=== PATIENT | male | born 1955 | race Caucasian/White ===

== ENCOUNTER 2021-03-07 13:48 | Inpatient (IN) | payer MEDICARE ==
[~2021-03-07 13:48] MED LIST: Iopamidol-370 76% 500 ML 1 ML ONE
[2021-03-07 15:37] VITALS: BMI 25.9
[2021-03-07] MEDS ORDERED: Diltiazem 125 MG in Sodium Chloride 0.9% 100 ML IVPB SCH (17:30)
[2021-03-07] MEDS ORDERED: Acetaminophen 325 MG TAB PO PRN (17:31)
[2021-03-07] MEDS ORDERED: HYDROcodone/Acetaminophen 5/325 mg Tablet PO PRN (17:31)
[2021-03-07] MEDS ORDERED: Calcium Carbonate 500 MG ChewTAB PO PRN (17:31)
[2021-03-07] MEDS ORDERED: Senokot S 8.6-50 MG TAB PO PRN (17:31)
[2021-03-07 18:14] LABS: Phosphorus 4.1 mg/dL (2.3-4.7)
[2021-03-07 18:17] LABS: Magnesium 1.5 mg/dL (1.6-2.6)
[2021-03-07] MEDS ORDERED: Albuterol Sulfate 2.5 mg/3 ml Neb NEB PRN (19:00)
[2021-03-07] MEDS: Diltiazem 125 MG in Sodium Chloride 0.9% 100 ML IVPB SCH (21:27)
[2021-03-07] MEDS: Enoxaparin Sodium 80 MG/0.8 ML SYRINGE SC SCH (21:28)
[2021-03-07] MEDS ORDERED: hydrOXYzine 25 MG TAB PO SCH (21:30)
[2021-03-07] MEDS ORDERED: Furosemide 40 MG/4 ML VIAL SLOW IVP SCH (23:45)
[2021-03-07 23:48] LABS: SARS-CoV-2 PCR by NAA Not Detected (NotDetected)
[2021-03-08 04:26] LABS: #Basophils 0.1 thou/uL (0.0-0.2); #Eosinphils 2.1 thou/uL (0.0-0.7); #Lymphocytes 3.1 thou/uL (1.20-3.40); #Monocytes 1.3 thou/uL (0.11-0.59); #Neutrophils 5.3 thou/uL (1.40-6.50); %Basophils 1.2 % (0.0-1.0); %Eosinophils 17.4 % (0.0-10.0); %Lymphocytes 25.9 % (21.0-51.0); %Monocytes 11.1 % (0.0-10.0); %Neutrophils 44.4 % (42.0-75.0); Hemoglobin 14.9 g/dL (14.0-18.0); Mean Corpuscular HGB CONC 31.9 g/dL (32.0-36.0); Mean Corpuscular Hemoglobin 30.7 pg (27.0-31.0); Mean Platelet Volume 8.4 fL (7.4-10.4); Platelet Count 314 thou/uL (130-400); Red Blood Cell (RBC) Count 4.84 mill/uL (4.70-6.10); White Blood Cell (WBC) Count 11.8 thou/uL (4.8-10.8)
[2021-03-08 04:49] LABS: BUN (Urea Nitrogen) 19 mg/dL (8.4-25.7); Calc. Creatinine Clearance 82 mL/min (70-130); Calcium 9.1 mg/dL (7.8-10.44); Carbon Dioxide 24 mmol/L (23-31); Glucose 85 mg/dL (80-115); Potassium 4.2 mmol/L (3.5-5.1); Sodium 135 mmol/L (136-145)
[2021-03-08 05:30] LABS: Chloride 103 mmol/L (98-107)
[2021-03-08 05:35] LABS: Anion Gap 12 mmol/L (10-20)
[2021-03-08] MEDS: Enoxaparin Sodium 80 MG/0.8 ML SYRINGE SC SCH ×2 (08:34→20:26)
[2021-03-08] MEDS: Furosemide 20 MG/2 ML VIAL SLOW IVP SCH ×2 (08:34→20:25)
[2021-03-08] MEDS: Nicotine 21 MG PATCH TD SCH (08:34)
[2021-03-08] MEDS ORDERED: FLU VACC QS2021-22(6MOS UP)/PF 60 MCG/0.5 ML SYRINGE IM ONE (09:00)
[2021-03-08] MEDS: Digoxin 0.5 MG/2 ML AMP SLOW IVP SCH ×3 (10:05→20:26)
[2021-03-08] MEDS: Diltiazem HCl SR 60 mg Capsule PO SCH ×3 (10:05→21:30)
[2021-03-08] MEDS: Diltiazem 125 MG in Sodium Chloride 0.9% 100 ML IVPB SCH (12:40)
[2021-03-08] MEDS ORDERED: Magnesium 2 GM/50 ML 2 GM in Premix Bag 1 BAG IVPB SCH (14:30)
[2021-03-08] MEDS ORDERED: Diltiazem 125 MG in Sodium Chloride 0.9% 100 ML IVPB SCH (16:30)
[2021-03-09] MEDS: Digoxin 0.5 MG/2 ML AMP SLOW IVP SCH (03:47)
[2021-03-09] MEDS: Diltiazem HCl SR 60 mg Capsule PO SCH (03:57)
[2021-03-09 04:54] LABS: #Basophils 0.2 thou/uL (0.0-0.2); #Lymphocytes 3.8 thou/uL (1.20-3.40); #Monocytes 1.7 thou/uL (0.11-0.59); #Neutrophils 5.1 thou/uL (1.40-6.50); %Basophils 1.6 % (0.0-1.0); %Eosinophils 15.4 % (0.0-10.0); %Lymphocytes 29.8 % (21.0-51.0); %Monocytes 13.4 % (0.0-10.0); %Neutrophils 39.8 % (42.0-75.0); Hemoglobin 16.4 g/dL (14.0-18.0); Mean Corpuscular HGB CONC 32.9 g/dL (32.0-36.0); Mean Corpuscular Hemoglobin 31.1 pg (27.0-31.0); Mean Corpuscular Volume 94.4 fL (78.0-98.0); Mean Platelet Volume 8.3 fL (7.4-10.4); Platelet Count 333 thou/uL (130-400); RBC Distribution Width 12.9 % (11.5-14.5); Red Blood Cell (RBC) Count 5.28 mill/uL (4.70-6.10); White Blood Cell (WBC) Count 12.7 thou/uL (4.8-10.8)
[2021-03-09 05:20] LABS: Anion Gap 13 mmol/L (10-20); BUN (Urea Nitrogen) 17 mg/dL (8.4-25.7); Calc. Creatinine Clearance 82 mL/min (70-130); Calcium 9.2 mg/dL (7.8-10.44); Carbon Dioxide 28 mmol/L (23-31); Chloride 100 mmol/L (98-107); Glucose 82 mg/dL (80-115); Magnesium 1.7 mg/dL (1.6-2.6); Potassium 4.3 mmol/L (3.5-5.1); Sodium 137 mmol/L (136-145)
[2021-03-09] MEDS ORDERED: Apixaban 5 MG TAB PO SCH (09:00)
[2021-03-09] MEDS ORDERED: Digoxin 0.125 MG TAB PO SCH (09:00)
[2021-03-09] MEDS: Nicotine 21 MG PATCH TD SCH (10:08)
[2021-03-09] MEDS: Furosemide 20 MG/2 ML VIAL SLOW IVP SCH (10:08)
[2021-03-09 11:40] VITALS: BP 111/71; TEMP 97.8
== END 2021-03-09 14:50 | disposition home or self-care (01) | DRG 309 ==
LOC: 2NO 13:48
PROVIDERS: ADMIT Internal Medicine; ATTEND Family Medicine
DX: I48.91 Unspecified atrial fibrillation (principal); B76.9 Hookworm disease, unspecified; I10 Essential (primary) hypertension; G89.29 Other chronic pain; M54.9 Dorsalgia, unspecified; J44.9 Chronic obstructive pulmonary disease, unspecified; F17.210 Nicotine dependence, cigarettes, uncomplicated; Z20.822 Contact with and (suspected) exposure to COVID-19; F10.10 Alcohol abuse, uncomplicated; E83.42 Hypomagnesemia; Z88.8 Allergy status to other drugs, medicaments and biological substances; Z79.899 Other long term (current) drug therapy; Z90.81 Acquired absence of spleen; Z98.890 Other specified postprocedural states; Z71.6 Tobacco abuse counseling
CPT/HCPCS: 36415; 71275; 80048; 83735; 84100; 84443; 85025; 85379; 93306; J1160; J1650; J1940; J3475; J3490; Q9967; U0003; U0005

== ENCOUNTER 2021-10-04 10:22 | Outpatient (CLI) | payer MEDICARE ==
[2021-10-04 11:57] LABS: Hemoglobin 14.9 g/dL (13.5-17.5); Mean Corpuscular HGB CONC 32.6 g/dL (32.0-36.0); Mean Corpuscular Hemoglobin 30.6 pg (27.0-33.0); Mean Corpuscular Volume 93.8 fl (81.2-95.1); Mean Platelet Volume 9.9 fl (7.4-10.4); Platelet Count 303 10x3/uL (150-450); RBC Distribution Width 14.5 % (11.5-14.5); Red Blood Cell (RBC) Count 4.87 10x6/uL (4.32-5.72); White Blood Cell (WBC) Count 9.6 10x3/uL (3.5-10.5)
[2021-10-04 12:20] LABS: Anion Gap 14 mmol/L (10-20); BUN (Urea Nitrogen) 27 mg/dL (8.4-25.7); Calc. Creatinine Clearance 0 mL/min (70-130); Calcium 8.8 mg/dL (7.8-10.44); Carbon Dioxide 22 mmol/L (23-31); Chloride 105 mmol/L (98-107); Glucose 64 mg/dL (80-115); Potassium 5.1 mmol/L (3.5-5.1); Sodium 136 mmol/L (136-145)
[2021-10-04 21:11] LABS: SARS-CoV-2 PCR by NAA Not Detected (NotDetected)
== END 2021-10-04 10:23 | disposition home or self-care (01) ==
LOC: LABBT 10:22
PROVIDERS: ATTEND Surgery
DX: Z01.818 Encounter for other preprocedural examination (principal); K40.90 Unilateral inguinal hernia, without obstruction or gangrene, not specified as recurrent; Z20.822 Contact with and (suspected) exposure to COVID-19
CPT/HCPCS: 80048; 85027; 93005; U0003; U0005; 93010

== ENCOUNTER 2021-10-09 08:30 | Day surgery (SDC) | payer MEDICARE ==
[2021-10-06 09:37] VITALS: BMI 25.7
[2021-10-09] MEDS ORDERED: Midazolam HCl 2 mg/2 ml Vial ONE (10:30)
[2021-10-09] MEDS ORDERED: Fentanyl 250 MCG/5 ML VIAL ONE (10:30)
[2021-10-09] MEDS ORDERED: SUGAMMADEX SODIUM 200 MG/2 ML VIAL ONE (10:30)
[2021-10-09] MEDS ORDERED: Bupivacaine 0.25% 10 ML VIAL ONE (10:38)
[2021-10-09] MEDS ORDERED: Lidocaine 1% w/Epinephrine 1:100K 20 ML VIAL ONE (10:38)
[2021-10-09] MEDS ORDERED: ePHEDrine 50 MG/ML VIAL ONE ×2 (11:00)
[2021-10-09] MEDS ORDERED: PROPOFOL 200 MG/20 ML VIAL ONE (11:00)
[2021-10-09] MEDS ORDERED: Rocuronium Bromide 10 MG/ML (10ML VIAL) ONE (11:00)
[2021-10-09] MEDS ORDERED: Lidocaine 1% PF 5 ML VIAL ONE (11:00)
[2021-10-09] MEDS ORDERED: Ondansetron PF 4 MG/2 ML Vial ONE (11:00)
[2021-10-09] MEDS ORDERED: Glycopyrrolate 0.2 MG/ML 5 ML SYRINGE ONE ×2 (11:00)
[2021-10-09] MEDS ORDERED: Fentanyl 100 MCG/2 ML VIAL ONE (12:51)
== END 2021-10-09 14:10 | disposition home or self-care (01) ==
LOC: SDC 08:30
PROVIDERS: ATTEND Surgery
PROC: 0YU54JZ Supplement Right Inguinal Region with Synthetic Substitute, Percutaneous Endoscopic Approach (ICD-10-PCS; principal; 2021-10-09)
PROC: 8E0W4CZ Robotic Assisted Procedure of Trunk Region, Percutaneous Endoscopic Approach (ICD-10-PCS; 2021-10-09)
DX: K40.90 Unilateral inguinal hernia, without obstruction or gangrene, not specified as recurrent (principal); R01.1 Cardiac murmur, unspecified; N40.0 Benign prostatic hyperplasia without lower urinary tract symptoms; M19.90 Unspecified osteoarthritis, unspecified site; F17.210 Nicotine dependence, cigarettes, uncomplicated; I48.91 Unspecified atrial fibrillation; Z79.01 Long term (current) use of anticoagulants; Z79.82 Long term (current) use of aspirin; Z79.899 Other long term (current) drug therapy; Z88.8 Allergy status to other drugs, medicaments and biological substances; Z91.038 Other insect allergy status
CPT/HCPCS: C1713; J2250; J2405; J2704; J3010; J3490; S0020

== ENCOUNTER 2022-06-11 11:03 | Outpatient (CLI) | payer MEDICARE | END 2022-06-11 11:04 | disposition home or self-care (01) | LOC: BICCT 11:03 | PROVIDERS: ATTEND Family Medicine | DX: M79.89 Other specified soft tissue disorders (principal); R59.0 Localized enlarged lymph nodes | CPT/HCPCS: 70492; 82565; Q9967 ==

== ENCOUNTER 2022-07-02 11:51 | Outpatient (CLI) | payer MEDICARE | END 2022-07-02 11:52 | disposition home or self-care (01) | LOC: BICCT 11:51 | PROVIDERS: ATTEND Family Medicine | DX: R59.0 Localized enlarged lymph nodes (principal); J98.4 Other disorders of lung; R91.1 Solitary pulmonary nodule; I51.7 Cardiomegaly; K76.9 Liver disease, unspecified; N20.0 Calculus of kidney | CPT/HCPCS: 71260; 82565 ==

== ENCOUNTER 2022-09-19 05:38 | Inpatient (IN) | payer MEDICARE ==
[2022-09-19 06:21] LABS: #Basophils 0.1 thou/uL (0.0-0.2); #Eosinphils 0.1 thou/uL (0.0-0.7); #Lymphocytes 1.6 thou/uL (1.20-3.40); #Monocytes 1.5 thou/uL (0.11-0.59); %Basophils 0.8 % (0.0-1.0); %Eosinophils 0.8 % (0.0-10.0); %Lymphocytes 12.3 % (21.0-51.0); %Monocytes 11.1 % (0.0-10.0); Hemoglobin 17.5 g/dL (14.0-18.0); Mean Corpuscular HGB CONC 30.9 g/dL (32.0-36.0); Mean Corpuscular Hemoglobin 30.4 pg (27.0-31.0); Mean Corpuscular Volume 98.4 fl (78.0-98.0); Mean Platelet Volume 8.7 fL (7.4-10.4); Platelet Count 224 10x3/uL (130-400); RBC Distribution Width 13.4 % (11.5-14.5); Red Blood Cell (RBC) Count 5.76 mill/uL (4.70-6.10); White Blood Cell (WBC) Count 13.3 10x3/uL (4.8-10.8)
[2022-09-19 06:22] LABS: Actual Bicarbonate (HCO3v) 23 mEq/L (22-28); Analyzer IN Cardio ER; Base Excess -2.9 mEq/L (-2.0 to +3.0); Calcium, Ionized (venous) 1.07 mmol/L (1.16-1.32); Chloride (VBG) 102 mmol/L (98-106); Hemoglobin (Hb) 18.6 g/dL (12.6-17.4); Potassium (VBG) 4.63 mmol/L (3.70-5.30); Sodium 137.2 mmol/L (133-146); pH (venous) 7.34 (7.32-7.43)
[2022-09-19 06:31] LABS: PTT 28.2 sec (22.9-36.1); Prothrombin Time 13.5 sec (12.0-14.7)
[2022-09-19 06:40] LABS: Digoxin 0.24 ng/mL (0.8-2.0)
[2022-09-19 06:41] LABS: ALT (SGPT) 51 U/L (8-55); AST (SGOT) 54 U/L (5-34); Albumin 3.4 g/dL (3.4-4.8); Alkaline Phosphatase 77 U/L (40-110); Anion Gap 13 mmol/L (10-20); BUN (Urea Nitrogen) 29 mg/dL (8.4-25.7); Bilirubin, Total 0.7 mg/dL (0.2-1.2); Calc. Creatinine Clearance 0 mL/min (70-130); Calcium 8.8 mg/dL (7.8-10.44); Carbon Dioxide 24 mmol/L (23-31); Chloride 104 mmol/L (98-107); Estimated GFR 62; Glucose 136 mg/dL (80-115); Lipase 9 U/L (8-78); Magnesium 1.9 mg/dL (1.6-2.6); Potassium 4.9 mmol/L (3.5-5.1); Protein, Total 7.4 g/dL (5.8-8.1); Sodium 136 mmol/L (136-145)
[2022-09-19] MEDS ORDERED: Diltiazem 125 MG/25 ML SDV ONE (06:56)
[2022-09-19 07:02] LABS: CKMB 4.6 ng/mL (0-6.6)
[2022-09-19 09:28] LABS: Acetaminophen Less than 10.0 mcg/mL (10.0-30.0); Alcohol Less than 10 mg/dL (Less than 10); Salicylate Less than 8.0 mg/dL (15.0-30.0)
[2022-09-19] MEDS ORDERED: Ondansetron PF 4 MG/2 ML Vial IVP PRN (09:33)
[2022-09-19] MEDS ORDERED: Acetaminophen 325 MG TAB PO PRN (09:33)
[2022-09-19] MEDS ORDERED: Senokot S 8.6-50 MG TAB PO PRN (09:33)
[2022-09-19] MEDS ORDERED: Bisacodyl 5 MG TAB PO PRN (09:33)
[2022-09-19 09:38] LABS: Troponin I 0.108 ng/mL (< 0.028)
[2022-09-19] MEDS ORDERED: Digoxin 0.5 MG/2 ML AMP SLOW IVP SCH (10:30)
[2022-09-19 10:49] LABS: #Basophils 0.1 thou/uL (0.0-0.2); #Lymphocytes 1.7 thou/uL (1.20-3.40); #Monocytes 1.5 thou/uL (0.11-0.59); %Basophils 0.4 % (0.0-1.0); %Eosinophils 0.3 % (0.0-10.0); %Lymphocytes 9.7 % (21.0-51.0); %Monocytes 8.9 % (0.0-10.0); %Neutrophils 80.8 % (42.0-75.0); Hemoglobin 18.1 g/dL (14.0-18.0); Mean Corpuscular HGB CONC 30.6 g/dL (32.0-36.0); Mean Corpuscular Hemoglobin 29.6 pg (27.0-31.0); Mean Corpuscular Volume 96.9 fl (78.0-98.0); Mean Platelet Volume 8.3 fL (7.4-10.4); Platelet Count 223 10x3/uL (130-400); RBC Distribution Width 13.4 % (11.5-14.5); Red Blood Cell (RBC) Count 6.11 mill/uL (4.70-6.10); White Blood Cell (WBC) Count 17.3 10x3/uL (4.8-10.8)
[2022-09-19 10:59] LABS: Actual Bicarbonate (HCO3v) 25 mEq/L (22-28); Base Excess -0.7 mEq/L (-2.0 to +3.0); Calcium, Ionized (venous) 1.06 mmol/L (1.16-1.32); Chloride (VBG) 101 mmol/L (98-106); Potassium (VBG) 5.37 mmol/L (3.70-5.30); Sodium 137.9 mmol/L (133-146); pH (venous) 7.37 (7.32-7.43)
[2022-09-19 11:11] LABS: ALT (SGPT) 57 U/L (8-55); AST (SGOT) 65 U/L (5-34); Albumin 3.8 g/dL (3.4-4.8); Alkaline Phosphatase 87 U/L (40-110); Anion Gap 15 mmol/L (10-20); BUN (Urea Nitrogen) 26 mg/dL (8.4-25.7); Bilirubin, Total 0.7 mg/dL (0.2-1.2); CK (CPK) 178 U/L (30-200); Calc. Creatinine Clearance 0 mL/min (70-130); Calcium 9.4 mg/dL (7.8-10.44); Carbon Dioxide 23 mmol/L (23-31); Chloride 104 mmol/L (98-107); Estimated GFR 72; Globulin 4.3 g/dL (2.4-3.5); Glucose 129 mg/dL (80-115); Potassium 4.8 mmol/L (3.5-5.1); Protein, Total 8.1 g/dL (5.8-8.1); Sodium 137 mmol/L (136-145)
[2022-09-19] MEDS ORDERED: Digoxin 0.5 MG/2 ML AMP ONE (11:59)
[2022-09-19 13:02] LABS: Bilirubin Negative (Negative); Blood, Urine Negative (Negative); Clarity Clear (Clear); Glucose, Urine (Dipstick) Normal (Negative); Ketone, Urine Negative (Negative); Leukocyte Negative Leu/uL (Negative); Nitrite Negative (Negative); Protein, Urine (Dipstick) 10 mg/dL (Neg-Trace); Specific Gravity, Urine 1.021 (1.002-1.036)
[2022-09-19 13:13] LABS: Amphetamine Detected (NotDetected); Barbiturates Screen Not Detected (NotDetected); Benzodiazepine Screen Not Detected (NotDetected); Cocaine Metabolite Screen Not Detected (NotDetected); Methadone Not Detected (NotDetected); Methamphetamine Detected (NotDetected); Opiate Screen Detected (NotDetected); Oxycodone Screen Not Detected (NotDetected); Phencyclidine (PCP) Not Detected (NotDetected); THC/Cannabinoid Screen Not Detected (NotDetected); Tricyclic Screen Not Detected (NotDetected)
[2022-09-19] MEDS ORDERED: Ondansetron PF 4 MG/2 ML Vial ONE (13:17)
[2022-09-19] MEDS ORDERED: cefTRIAXone (ROCEPHIN) 2 GM VIAL ONE (13:21)
[2022-09-19] MEDS ORDERED: Famotidine/PF 20 mg/2ml Vial ONE (13:21)
[2022-09-19] MEDS: cefTRIAXone\\ROCEPHIN 2 GM in Sodium Chloride 0.9% 100 ML IVPB SCH (13:31)
[2022-09-19 13:35] LABS: Troponin I 0.096 ng/mL (< 0.028)
[2022-09-19] MEDS ORDERED: Sodium Chloride 0.9% 500 ML IV SCH (19:00)
[2022-09-19] MEDS: Atorvastatin Calcium 40 MG TAB PO SCH (21:39)
[2022-09-19] MEDS: Famotidine/PF 20 mg/2ml Vial SLOW IVP SCH (21:40)
[2022-09-19] MEDS: Sodium Chloride 0.9% 1,000 ML IV SCH (21:40)
[2022-09-20] MEDS ORDERED: Benzonatate 100 MG CAP PO PRN (03:14)
[2022-09-20 04:00] LABS: #Eosinphils 0.2 thou/uL (0.0-0.7); #Lymphocytes 2.2 thou/uL (1.20-3.40); #Monocytes 2.7 thou/uL (0.11-0.59); #Neutrophils 13.9 thou/uL (1.40-6.50); %Basophils 0.1 % (0.0-1.0); %Eosinophils 1.1 % (0.0-10.0); %Lymphocytes 11.5 % (21.0-51.0); %Monocytes 14.3 % (0.0-10.0); Hemoglobin 17.8 g/dL (14.0-18.0); Mean Corpuscular HGB CONC 31.9 g/dL (32.0-36.0); Mean Corpuscular Hemoglobin 31.2 pg (27.0-31.0); Mean Corpuscular Volume 97.6 fl (78.0-98.0); Mean Platelet Volume 9.1 fL (7.4-10.4); Platelet Count 173 10x3/uL (130-400); RBC Distribution Width 13.3 % (11.5-14.5)
[2022-09-20 04:05] LABS: Bacteria/HPF None Seen HPF (None Seen); Bilirubin Negative (Negative); Blood, Urine Negative (Negative); CAUTI Indications for Culture Alt mental st,lethar; Clarity Clear (Clear); Glucose, Urine (Dipstick) Normal (Negative); Ketone, Urine Negative (Negative); Leukocyte Negative Leu/uL (Negative); Nitrite Negative (Negative); Protein, Urine (Dipstick) 10 mg/dL (Neg-Trace); RBC/HPF 0-3 HPF (0-3); Specific Gravity, Urine 1.021 (1.002-1.036); Squamous Epithelial 0-3 HPF (0-3); Urobilinogen 3 mg/dL (Less than 2); WBC/HPF 0-3 HPF (0-3)
[2022-09-20 04:08] LABS: Urine Culture Reflex No No
[2022-09-20 04:42] LABS: HBCM Index 0.17 S/CO (0-0.79); HBSAg Index 0.25 S/CO (0-0.99); Hep A IgM AB Non-Reactive (NonReactive); Hep A IgM S/CO 0.38 S/CO (0-0.79); Hep B Surf Ag Non-Reactive S/CO (NonReactive); Hepatitis B Core IgM Abs Non-Reactive (NonReactive)
[2022-09-20 05:09] LABS: Hep C IgG Ab Reflex HepC Qnt (NonReactive); Hep C Index 14.55 S/CO (0-0.79)
[2022-09-20 06:26] LABS: Albumin 2.8 g/dL (3.4-4.8)
[2022-09-20 06:27] LABS: Chloride 106 mmol/L (98-107); Sodium 137 mmol/L (136-145)
[2022-09-20 06:29] LABS: Globulin 3.2 g/dL (2.4-3.5); Glucose 89 mg/dL (80-115); Triglycerides 58 mg/dL (Less than 150)
[2022-09-20 06:30] LABS: Anion Gap 12 mmol/L (10-20); Bilirubin, Total 0.6 mg/dL (0.2-1.2); Carbon Dioxide 23 mmol/L (23-31)
[2022-09-20 06:31] LABS: Alkaline Phosphatase 63 U/L (40-110)
[2022-09-20 06:32] LABS: Calc. Creatinine Clearance 88 mL/min (70-130); Estimated GFR 86
[2022-09-20 06:33] LABS: BUN (Urea Nitrogen) 23 mg/dL (8.4-25.7)
[2022-09-20 06:34] LABS: AST (SGOT) 54 U/L (5-34); Cardiac Risk 3.8 (Less than 4.5); Cholesterol 115 mg/dl (< 200 Desired); HDL Cholesterol 30 mg/dL (>60 Neg Risk); LDL Cholesterol, Calculated 73 mg/dL
[2022-09-20 06:35] LABS: ALT (SGPT) 45 U/L (8-55); Calcium 7.6 mg/dL (7.8-10.44)
[2022-09-20] MEDS: Digoxin 0.125 MG TAB PO SCH (08:51)
[2022-09-20] MEDS: Aspirin 81 mg Enteric Coated Tablet PO SCH (08:51)
[2022-09-20] MEDS: Famotidine/PF 20 mg/2ml Vial SLOW IVP SCH ×2 (08:51→20:42)
[2022-09-20] MEDS: Calcium Carbonate 500 MG ChewTAB PO SCH ×2 (08:51→20:43)
[2022-09-20] MEDS ORDERED: Lorazepam 2 MG/ML VIAL SLOW IVP PRN (12:09)
[2022-09-20] MEDS: Thiamine HCl 200 MG/2 ML VIAL SLOW IVP SCH (13:56)
[2022-09-20] MEDS: cefTRIAXone\\ROCEPHIN 2 GM in Sodium Chloride 0.9% 100 ML IVPB SCH (13:57)
[2022-09-20] MEDS: Sodium Chloride 0.9% 1,000 ML IV SCH (15:45)
[2022-09-20] MEDS: Atorvastatin Calcium 40 MG TAB PO SCH (20:44)
[2022-09-21] MEDS: Digoxin 0.125 MG TAB PO SCH (09:06)
[2022-09-21] MEDS: Famotidine/PF 20 mg/2ml Vial SLOW IVP SCH ×2 (09:06→21:03)
[2022-09-21] MEDS: Folic Acid 1 MG TAB PO SCH (09:07)
[2022-09-21] MEDS: Calcium Carbonate 500 MG ChewTAB PO SCH ×2 (09:07→21:03)
[2022-09-21] MEDS: Aspirin 81 mg Enteric Coated Tablet PO SCH (09:07)
[2022-09-21] MEDS: Sodium Chloride 0.9% 1,000 ML IV SCH (12:20)
[2022-09-21] MEDS: Thiamine HCl 200 MG/2 ML VIAL SLOW IVP SCH (12:21)
[2022-09-21] MEDS: cefTRIAXone\\ROCEPHIN 2 GM in Sodium Chloride 0.9% 100 ML IVPB SCH (12:21)
[2022-09-21] MEDS: Atorvastatin Calcium 40 MG TAB PO SCH (21:03)
[2022-09-22] MEDS: Calcium Carbonate 500 MG ChewTAB PO SCH ×2 (09:18→21:08)
[2022-09-22] MEDS: Aspirin 81 mg Enteric Coated Tablet PO SCH (09:18)
[2022-09-22] MEDS: Digoxin 0.125 MG TAB PO SCH (09:18)
[2022-09-22] MEDS: Folic Acid 1 MG TAB PO SCH (09:19)
[2022-09-22 09:21] LABS: Anion Gap 11 mmol/L (10-20); BUN (Urea Nitrogen) 18 mg/dL (8.4-25.7); Calc. Creatinine Clearance 86 mL/min (70-130); Calcium 8.8 mg/dL (7.8-10.44); Carbon Dioxide 28 mmol/L (23-31); Chloride 98 mmol/L (98-107); Estimated GFR 88; Glucose 83 mg/dL (80-115); Potassium 4.2 mmol/L (3.5-5.1); Sodium 133 mmol/L (136-145)
[2022-09-22 09:38] LABS: Hemoglobin 17.3 g/dL (14.0-18.0); Lymphocytes 16 % (21-51); MDiff Complete? YES; Mean Corpuscular Hemoglobin 31.8 pg (27.0-31.0); Mean Corpuscular Volume 96.4 fl (78.0-98.0); Mean Platelet Volume 8.6 fL (7.4-10.4); Monocytes 12 % (0-10); Neutrophil 72 % (42-75); Platelet Count 242 10x3/uL (130-400); Platelet Morphology Comment Appears Adequate; RBC Distribution Width 12.7 % (11.5-14.5); RBC Morphology Normal; Red Blood Cell (RBC) Count 5.45 mill/uL (4.70-6.10); White Blood Cell (WBC) Count 13.1 10x3/uL (4.8-10.8)
[2022-09-22] MEDS: Famotidine/PF 20 mg/2ml Vial SLOW IVP SCH ×2 (10:52→21:08)
[2022-09-22] MEDS ORDERED: Metoprolol Tartrate 5 MG/5 ML VIAL IVP PRN (11:00)
[2022-09-22] MEDS: Sodium Chloride 0.9% 1,000 ML IV SCH (11:07)
[2022-09-22] MEDS: cefTRIAXone\\ROCEPHIN 2 GM in Sodium Chloride 0.9% 100 ML IVPB SCH (11:07)
[2022-09-22] MEDS: Thiamine HCl 200 MG/2 ML VIAL SLOW IVP SCH (12:33)
[2022-09-22 16:37] LABS: HCV RNA, log10 5.975 (.); Hep C PCR-Quant 943000 IU/mL (.)
[2022-09-22] MEDS: Atorvastatin Calcium 40 MG TAB PO SCH (21:08)
[2022-09-23 03:28] LABS: Anion Gap 13 mmol/L (10-20); BUN (Urea Nitrogen) 18 mg/dL (8.4-25.7); Calc. Creatinine Clearance 82 mL/min (70-130); Calcium 8.8 mg/dL (7.8-10.44); Carbon Dioxide 22 mmol/L (23-31); Chloride 100 mmol/L (98-107); Estimated GFR 83; Glucose 83 mg/dL (80-115); Magnesium 1.8 mg/dL (1.6-2.6); Potassium 4.2 mmol/L (3.5-5.1); Sodium 131 mmol/L (136-145)
[2022-09-23] MEDS: Sodium Chloride 0.9% 1,000 ML IV SCH (06:33)
[2022-09-23] MEDS: Digoxin 0.125 MG TAB PO SCH (08:56)
[2022-09-23] MEDS: Aspirin 81 mg Enteric Coated Tablet PO SCH (08:56)
[2022-09-23] MEDS: Famotidine/PF 20 mg/2ml Vial SLOW IVP SCH ×2 (08:57→20:42)
[2022-09-23] MEDS: Folic Acid 1 MG TAB PO SCH (08:57)
[2022-09-23] MEDS: cefTRIAXone\\ROCEPHIN 2 GM in Sodium Chloride 0.9% 100 ML IVPB SCH (11:43)
[2022-09-23] MEDS ORDERED: Magnesium Sulfate 3 GM in Sodium Chloride 0.9% 100 ML IVPB SCH (12:00)
[2022-09-23] MEDS: Thiamine HCl 200 MG/2 ML VIAL SLOW IVP SCH (12:29)
[2022-09-23] MEDS: Nicotine 21 MG PATCH TD SCH (15:36)
[2022-09-23] MEDS: Atorvastatin Calcium 40 MG TAB PO SCH (20:42)
[2022-09-24 05:47] LABS: Hemoglobin 16.9 g/dL (14.0-18.0); Mean Corpuscular HGB CONC 32.3 g/dL (32.0-36.0); Mean Corpuscular Hemoglobin 30.2 pg (27.0-31.0); Mean Corpuscular Volume 93.6 fl (78.0-98.0); Mean Platelet Volume 8.1 fL (7.4-10.4); Platelet Count 278 10x3/uL (130-400); RBC Distribution Width 12.7 % (11.5-14.5); Red Blood Cell (RBC) Count 5.59 mill/uL (4.70-6.10); White Blood Cell (WBC) Count 13.4 10x3/uL (4.8-10.8)
[2022-09-24 05:55] LABS: Anion Gap 10 mmol/L (10-20); BUN (Urea Nitrogen) 20 mg/dL (8.4-25.7); Calc. Creatinine Clearance 86 mL/min (70-130); Calcium 8.2 mg/dL (7.8-10.44); Carbon Dioxide 22 mmol/L (23-31); Chloride 103 mmol/L (98-107); Estimated GFR 91; Glucose 96 mg/dL (80-115); Potassium 4.2 mmol/L (3.5-5.1); Sodium 131 mmol/L (136-145)
[2022-09-24] MEDS: Sodium Chloride 0.9% 1,000 ML IV SCH ×2 (06:31→21:10)
[2022-09-24 08:01] LABS: Lymphocytes 22 % (21-51); MDiff Complete? YES; Monocytes 9 % (0-10); Neutrophil 67 % (42-75); Platelet Morphology Comment Appears Adequate; RBC Morphology Normal
[2022-09-24] MEDS: Famotidine/PF 20 mg/2ml Vial SLOW IVP SCH ×2 (09:37→20:57)
[2022-09-24] MEDS: Digoxin 0.125 MG TAB PO SCH (09:37)
[2022-09-24] MEDS: Aspirin 81 mg Enteric Coated Tablet PO SCH (09:37)
[2022-09-24] MEDS: Folic Acid 1 MG TAB PO SCH (09:37)
[2022-09-24] MEDS: Thiamine HCl 200 MG/2 ML VIAL SLOW IVP SCH (12:31)
[2022-09-24] MEDS ORDERED: hydrALAZINE 25 MG TAB PO SCH (14:00)
[2022-09-24] MEDS: Benzonatate 100 MG CAP PO SCH ×2 (15:27→20:57)
[2022-09-24] MEDS: Nicotine 21 MG PATCH TD SCH (15:27)
[2022-09-24] MEDS: Atorvastatin Calcium 40 MG TAB PO SCH (20:56)
[2022-09-24] MEDS: hydrALAZINE 25 MG TAB PO SCH (20:57)
[2022-09-25 06:28] LABS: Hemoglobin 17.4 g/dL (14.0-18.0); Mean Corpuscular HGB CONC 32.7 g/dL (32.0-36.0); Mean Corpuscular Hemoglobin 31.3 pg (27.0-31.0); Mean Corpuscular Volume 95.4 fl (78.0-98.0); Mean Platelet Volume 8.1 fL (7.4-10.4); Platelet Count 316 10x3/uL (130-400); RBC Distribution Width 12.9 % (11.5-14.5); Red Blood Cell (RBC) Count 5.58 mill/uL (4.70-6.10); White Blood Cell (WBC) Count 11.9 10x3/uL (4.8-10.8)
[2022-09-25 06:41] LABS: Anion Gap 12 mmol/L (10-20); BUN (Urea Nitrogen) 21 mg/dL (8.4-25.7); Calc. Creatinine Clearance 89 mL/min (70-130); Calcium 8.8 mg/dL (7.8-10.44); Carbon Dioxide 19 mmol/L (23-31); Chloride 106 mmol/L (98-107); Estimated GFR 94; Glucose 90 mg/dL (80-115); Magnesium 1.7 mg/dL (1.6-2.6); Potassium 4.3 mmol/L (3.5-5.1); Sodium 133 mmol/L (136-145)
[2022-09-25 07:01] LABS: Band 1 % (5-11); Eosinophils 5 % (0-10); Lymphocytes 25 % (21-51); MDiff Complete? YES; Monocytes 14 % (0-10); Neutrophil 54 % (42-75)
[2022-09-25 07:37] VITALS: BMI 226535.8
[2022-09-25] MEDS ORDERED: Magnesium 2 GM/50 ML(in water) 2 GM in Premix Bag 1 BAG IVPB SCH (08:15)
[2022-09-25] MEDS: Aspirin 81 mg Enteric Coated Tablet PO SCH (10:00)
[2022-09-25] MEDS: hydrALAZINE 25 MG TAB PO SCH ×2 (10:00→21:33)
[2022-09-25] MEDS: Folic Acid 1 MG TAB PO SCH (10:00)
[2022-09-25] MEDS: Famotidine/PF 20 mg/2ml Vial SLOW IVP SCH ×2 (10:00→21:33)
[2022-09-25] MEDS: Benzonatate 100 MG CAP PO SCH ×3 (10:00→21:33)
[2022-09-25] MEDS: Magnesium Oxide 400 MG TAB PO SCH (10:00)
[2022-09-25] MEDS: Digoxin 0.125 MG TAB PO SCH (10:00)
[2022-09-25] MEDS: Thiamine HCl 200 MG/2 ML VIAL SLOW IVP SCH (12:36)
[2022-09-25] MEDS: Sodium Chloride 0.9% 1,000 ML IV SCH (15:50)
[2022-09-25] MEDS: Nicotine 21 MG PATCH TD SCH (15:50)
[2022-09-25] MEDS ORDERED: HYDROcodone/Acetaminophen 5/325 mg Tablet PO SCH (16:45)
[2022-09-25] MEDS ORDERED: Morphine 2 MG/ML VIAL SLOW IVP PRN (18:00)
[2022-09-25] MEDS: Atorvastatin Calcium 40 MG TAB PO SCH (21:32)
[2022-09-26 05:28] LABS: Anion Gap 12 mmol/L (10-20); BUN (Urea Nitrogen) 19 mg/dL (8.4-25.7); Calc. Creatinine Clearance 70 mL/min (70-130); Calcium 8.8 mg/dL (7.8-10.44); Carbon Dioxide 22 mmol/L (23-31); Chloride 103 mmol/L (98-107); Estimated GFR 72; Glucose 105 mg/dL (80-115); Magnesium 1.8 mg/dL (1.6-2.6); Potassium 4.4 mmol/L (3.5-5.1); Sodium 133 mmol/L (136-145)
[2022-09-26] MEDS: Digoxin 0.125 MG TAB PO SCH (09:39)
[2022-09-26] MEDS: Benzonatate 100 MG CAP PO SCH (09:39)
[2022-09-26] MEDS: Aspirin 81 mg Enteric Coated Tablet PO SCH (09:39)
[2022-09-26] MEDS: hydrALAZINE 25 MG TAB PO SCH (09:40)
[2022-09-26] MEDS: Famotidine/PF 20 mg/2ml Vial SLOW IVP SCH (09:40)
[2022-09-26] MEDS: Folic Acid 1 MG TAB PO SCH (09:40)
[2022-09-26] MEDS: Magnesium Oxide 400 MG TAB PO SCH (09:40)
[2022-09-26 12:02] VITALS: BP 122/84; TEMP 98.1
[2022-09-26] MEDS: Thiamine HCl 200 MG/2 ML VIAL SLOW IVP SCH (13:12)
[2022-09-26] MEDS: Sodium Chloride 0.9% 1,000 ML IV SCH (13:16)
== END 2022-09-26 14:34 | disposition swing bed (61) | DRG 64 ==
LOC: ERS 05:38 → ERHOLD 09:58 → IMCU/EMU 16:12 → NEURO 09-20 18:20
PROVIDERS: ADMIT Internal Medicine; ATTEND Internal Medicine
DX: I63.9 Cerebral infarction, unspecified (principal); G93.41 Metabolic encephalopathy; G93.6 Cerebral edema; J44.9 Chronic obstructive pulmonary disease, unspecified; I10 Essential (primary) hypertension; R91.1 Solitary pulmonary nodule; F17.210 Nicotine dependence, cigarettes, uncomplicated; D72.829 Elevated white blood cell count, unspecified; B19.20 Unspecified viral hepatitis C without hepatic coma; I48.91 Unspecified atrial fibrillation; Z20.822 Contact with and (suspected) exposure to COVID-19; F10.10 Alcohol abuse, uncomplicated; Z88.8 Allergy status to other drugs, medicaments and biological substances; Z79.82 Long term (current) use of aspirin; Z98.890 Other specified postprocedural states; Z90.81 Acquired absence of spleen; Z83.3 Family history of diabetes mellitus; Z79.899 Other long term (current) drug therapy; Z71.41 Alcohol abuse counseling and surveillance of alcoholic
CPT/HCPCS: 36415; 36416; 51701; 70450; 70551; 71045; 72125; 80048; 80053; 80061; 80074; 80162; 80306; 80307; 81001; 81003; 82140; 82550; 82553; 82805; 83605; 83690; 83735; 83880; 84443; 84484; 85025; 85610; 85730; 86140; 87040; 87086; 87522; 93005; 93306; 93880; 95712; 95819; 95957; 96361; 96365; 96366; 96376; J0696; J1160; J1650; J2060; J2272; J2405; J3411; J3475; J3490; J7050; S0028

== ENCOUNTER 2023-01-10 13:11 | Outpatient (CLI) | payer MEDICARE | END 2023-01-10 13:12 | disposition home or self-care (01) | LOC: RAD 13:11 | PROVIDERS: ATTEND Neurological Surgery | DX: S12.9XXA Fracture of neck, unspecified, initial encounter (principal) | CPT/HCPCS: 72050 ==

== ENCOUNTER 2023-02-13 13:30 | Outpatient (CLI) | payer MEDICARE | END 2023-02-13 13:31 | disposition home or self-care (01) | LOC: RAD 13:30 | PROVIDERS: ATTEND Neurological Surgery | DX: S12.000A Unspecified displaced fracture of first cervical vertebra, initial encounter for closed fracture (principal) | CPT/HCPCS: 72050 ==

== ENCOUNTER 2023-11-15 10:35 | Inpatient (IN) | payer MEDICARE ==
[2023-11-15] MEDS ORDERED: Ondansetron PF 4 MG/2 ML Vial ONE (11:48)
[2023-11-15] MEDS ORDERED: Morphine 4 MG/ML VIAL ONE ×2 (11:48→14:51)
[2023-11-15 12:06] LABS: #Basophils 0.07 10x3/uL (0.0-0.2); %Basophils 0.7 % (0.0-1.0); %Eosinophils 3.1 % (0.0-10.0); %Lymphocytes 15.9 % (21.0-51.0); %Monocytes 11.7 % (0.0-10.0); %Neutrophils 67.9 % (42.0-75.0); Hemoglobin 14.3 g/dL (14.0-18.0); Mean Corpuscular HGB CONC 33.3 g/dL (32.0-36.0); Mean Corpuscular Volume 96.2 fL (78.0-98.0); Mean Platelet Volume 10.6 fL (7.4-10.4); Platelet Count 197 10x3/uL (130-400); RBC Distribution Width 14.9 % (11.5-14.5); Red Blood Cell (RBC) Count 4.47 mill/uL (4.70-6.10)
[2023-11-15 12:19] LABS: INR-International Normal Ratio 1.4; Prothrombin Time 17.5 sec (12.0-14.7)
[2023-11-15 12:20] LABS: PTT 34.3 sec (22.9-36.1)
[2023-11-15 12:47] LABS: ALT (SGPT) 41 U/L (8-55); AST (SGOT) 53 U/L (5-34); Albumin 3.2 g/dL (3.4-4.8); Alkaline Phosphatase 64 U/L (40-110); Anion Gap 17 mmol/L (10-20); BUN (Urea Nitrogen) 26 mg/dL (8.4-25.7); Bilirubin, Total 1.2 mg/dL (0.2-1.2); Calc. Creatinine Clearance 0 mL/min (70-130); Calcium 8.8 mg/dL (7.8-10.44); Carbon Dioxide 18 mmol/L (23-31); Chloride 112 mmol/L (98-107); Estimated GFR 63; Globulin 3.5 g/dL (2.4-3.5); Glucose 101 mg/dL (80-115); Protein, Total 6.7 g/dL (5.8-8.1); Sodium 143 mmol/L (136-145)
[2023-11-15] MEDS ORDERED: dilTIAZem 25 MG/5 ML VIAL ONE (12:59)
[2023-11-15 15:11] LABS: Troponin I 0.031 ng/mL (< 0.028)
[2023-11-15] MEDS ORDERED: Dextrose 5% in Water 1,000 ML IV PRN (15:29)
[2023-11-15] MEDS ORDERED: Glucagon 1 MG/ML KIT IM PRN (15:29)
[2023-11-15] MEDS ORDERED: Ondansetron ODT 4 MG TAB PO PRN ×2 (15:29→15:32)
[2023-11-15] MEDS ORDERED: Dextrose 50% Abboject 50 ML SYRINGE SLOW IVP PRN (15:29)
[2023-11-15] MEDS ORDERED: Ondansetron PF 4 MG/2 ML Vial IVP PRN (15:29)
[2023-11-15] MEDS ORDERED: hydrALAZINE 20 MG/ML VIAL SLOW IVP PRN (15:29)
[2023-11-15] MEDS ORDERED: Rib Fracture Protocol PO SCH (15:30)
[2023-11-15] MEDS ORDERED: Ipratropium/Albuterol 3 ML NEB NEB PRN (15:31)
[2023-11-15] MEDS ORDERED: Electrolyte Replacement Protocol FS SCH (15:45)
[2023-11-15] MEDS ORDERED: Boostrix 0.5 ML (Tdap) VIAL (>/=7 yrs of age) ONE (15:57)
[2023-11-15] MEDS ORDERED: Lorazepam 1 MG TAB ONE (15:57)
[2023-11-15] MEDS ORDERED: dilTIAZem 30 MG TAB PO PRN (15:58)
[2023-11-15] MEDS: Lorazepam 1 MG TAB PO PRN (16:01)
[2023-11-15] MEDS: TETANUS, DIPHTHERIA TOX,ADULT (TDVAX) 0.5 ML VIAL IM ONE (16:08)
[2023-11-15 16:39] LABS: Acetaminophen Less than 10 mcg/mL (10.0-30.0); Alcohol Less than 10.0 mg/dL (Less than 10); Salicylate Less than 8.0 mg/dL (15.0-30.0)
[2023-11-15] MEDS ORDERED: Acetaminophen 500 MG TAB ONE (16:52)
[2023-11-15] MEDS ORDERED: Thiamine HCl 200 MG/2 ML VIAL ONE (16:52)
[2023-11-15] MEDS ORDERED: traMADol HCl 50 MG TAB ONE (16:53)
[2023-11-15] MEDS: Thiamine HCl 200 MG/2 ML VIAL SLOW IVP SCH (16:59)
[2023-11-15] MEDS: Acetaminophen 500 MG TAB PO SCH (16:59)
[2023-11-15] MEDS: traMADol HCl 50 MG TAB PO SCH (17:00)
[2023-11-15 19:48] LABS: Anion Gap 7 mmol/L (10-20); BUN (Urea Nitrogen) 25 mg/dL (8.4-25.7); Calc. Creatinine Clearance 59 mL/min (70-130); Calcium 8.2 mg/dL (7.8-10.44); Carbon Dioxide 18 mmol/L (23-31); Chloride 112 mmol/L (98-107); Estimated GFR 71; Glucose 96 mg/dL (80-115); Magnesium 1.5 mg/dL (1.6-2.6); Phosphorus 3.4 mg/dL (2.3-4.7); Potassium 4.2 mmol/L (3.5-5.1); Sodium 133 mmol/L (136-145)
[2023-11-15 19:51] LABS: Troponin I 0.039 ng/mL (< 0.028)
[2023-11-15 20:02] VITALS: BMI 24.0
[2023-11-15] MEDS: Atorvastatin Calcium 40 MG TAB PO SCH (22:08)
[2023-11-15] MEDS: Ibuprofen 200 MG TAB PO SCH (22:08)
[2023-11-15] MEDS: Famotidine 20 MG TAB PO SCH (22:09)
[2023-11-15] MEDS: Tamsulosin HCl 0.4 MG CAP PO SCH (22:09)
[2023-11-15] MEDS: Magnesium Sulfate In Water 4 GM in Premix 1 BAG IVPB SCH (22:09)
[2023-11-15] MEDS: Cyanocobalamin (Vitamin B-12) 1,000 MCG TAB PO SCH (22:09)
[2023-11-15] MEDS: Gabapentin 300 MG CAP PO SCH (22:09)
[2023-11-16 05:36] LABS: Troponin I 0.046 ng/mL (< 0.028)
[2023-11-16 05:52] LABS: Anion Gap 9 mmol/L (10-20); BUN (Urea Nitrogen) 29 mg/dL (8.4-25.7); Calc. Creatinine Clearance 59 mL/min (70-130); Calcium 8.3 mg/dL (7.8-10.44); Carbon Dioxide 22 mmol/L (23-31); Chloride 116 mmol/L (98-107); Estimated GFR 58; Glucose 74 mg/dL (80-115); Magnesium 2.5 mg/dL (1.6-2.6); Potassium 4.4 mmol/L (3.5-5.1); Sodium 143 mmol/L (136-145)
[2023-11-16 06:06] LABS: #Basophils 0.08 10x3/uL (0.0-0.2); %Basophils 0.8 % (0.0-1.0); %Eosinophils 10.6 % (0.0-10.0); %Monocytes 14.9 % (0.0-10.0); %Neutrophils 46.3 % (42.0-75.0); Hematocrit 41.4 % (42.0-52.0); Hemoglobin 13.6 g/dL (14.0-18.0); Mean Corpuscular HGB CONC 32.9 g/dL (32.0-36.0); Mean Corpuscular Hemoglobin 31.7 pg (27.0-31.0); Mean Corpuscular Volume 96.5 fL (78.0-98.0); Platelet Count 186 10x3/uL (130-400); Red Blood Cell (RBC) Count 4.29 mill/uL (4.70-6.10)
[2023-11-16 06:14] LABS: Phosphorus 3.8 mg/dL (2.3-4.7)
[2023-11-16] MEDS: Digoxin 0.125 MG TAB PO SCH (11:06)
[2023-11-16] MEDS: dilTIAZem CD 240 MG CAP PO SCH (11:07)
[2023-11-16] MEDS: Multivit, Therapeutic 1 TAB PO SCH (11:08)
[2023-11-16] MEDS: Folic Acid 1 MG TAB PO SCH (11:09)
[2023-11-16] MEDS: Lactated Ringer's 1,000 ML IV SCH (11:35)
[2023-11-16] MEDS ORDERED: Lorazepam 1 MG TAB PO PRN (15:32)
[2023-11-16] MEDS: Transdermal Patch Removal TOP SCH (21:14)
[2023-11-17 06:10] LABS: %Basophils 0.9 % (0.0-1.0); %Eosinophils 18.7 % (0.0-10.0); %Lymphocytes 22.2 % (21.0-51.0); %Monocytes 15.1 % (0.0-10.0); %Neutrophils 42.6 % (42.0-75.0); Hematocrit 41.9 % (42.0-52.0); Hemoglobin 13.9 g/dL (14.0-18.0); Mean Corpuscular HGB CONC 33.2 g/dL (32.0-36.0); Mean Corpuscular Hemoglobin 31.3 pg (27.0-31.0); Mean Corpuscular Volume 94.4 fL (78.0-98.0); Platelet Count 164 10x3/uL (130-400); RBC Distribution Width 15.1 % (11.5-14.5); Red Blood Cell (RBC) Count 4.44 mill/uL (4.70-6.10)
[2023-11-17 07:09] LABS: Anion Gap 11 mmol/L (10-20); BUN (Urea Nitrogen) 32 mg/dL (8.4-25.7); Calc. Creatinine Clearance 70 mL/min (70-130); Calcium 8.1 mg/dL (7.8-10.44); Carbon Dioxide 23 mmol/L (23-31); Chloride 111 mmol/L (98-107); Estimated GFR 70; Glucose 62 mg/dL (80-115); Magnesium 1.8 mg/dL (1.6-2.6); Phosphorus 3.5 mg/dL (2.3-4.7); Potassium 4.5 mmol/L (3.5-5.1); Sodium 140 mmol/L (136-145)
[2023-11-17] MEDS: Magnesium 2 GM/50 ML(in water) 2 GM in Premix 1 BAG IVPB SCH (08:26)
[2023-11-17] MEDS: Aspirin 81 mg Enteric Coated Tablet PO SCH (08:27)
[2023-11-17] MEDS: Lidocaine 4% Patch TD SCH (08:28)
[2023-11-17] MEDS ORDERED: Lorazepam 1 MG TAB PO PRN (15:32)
[2023-11-17] MEDS: Rivaroxaban 10 MG TAB PO SCH (17:49)
[2023-11-17 17:50] LABS: Digoxin Less than 0.19 ng/mL (0.8-2.0)
[2023-11-18] MEDS: Sodium Chloride 0.9% 500 ML IV SCH (00:52)
[2023-11-18] MEDS: Midodrine HCl 5 MG TAB PO SCH (02:12)
[2023-11-18] MEDS: NOREPINEPHRINE 8 MG/250 ML-D5W 250 ML IVPB SCH (05:20)
[2023-11-18] MEDS: fentaNYL 50 mcg/mL 1 mL Vial SLOW IVP SCH ×3 (05:51→08:17)
[2023-11-18] MEDS: fentaNYL 50 mcg/mL 1 mL Vial ONE ×2 (08:17)
[2023-11-18] MEDS: NOREPINEPHRINE 8 MG/250 ML-D5W 250 ML ONE (08:19)
[2023-11-18 08:40] LABS: Anion Gap 10 mmol/L (10-20); BUN (Urea Nitrogen) 33 mg/dL (8.4-25.7); Calc. Creatinine Clearance 79 mL/min (70-130); Calcium 8.2 mg/dL (7.8-10.44); Carbon Dioxide 18 mmol/L (23-31); Chloride 112 mmol/L (98-107); Estimated GFR 82; Glucose 88 mg/dL (80-115); Sodium 135 mmol/L (136-145)
[2023-11-18 09:29] LABS: Magnesium 2.2 mg/dL (1.6-2.6)
[2023-11-18] MEDS: Thiamine 100 MG TAB PO SCH (10:00)
[2023-11-18 10:05] LABS: #Basophils 0.11 10x3/uL (0.0-0.2); %Eosinophils 12.9 % (0.0-10.0); %Lymphocytes 20.1 % (21.0-51.0); %Monocytes 14.9 % (0.0-10.0); %Neutrophils 50.3 % (42.0-75.0); Hematocrit 45.2 % (42.0-52.0); Hemoglobin 14.6 g/dL (14.0-18.0); Mean Corpuscular HGB CONC 32.3 g/dL (32.0-36.0); Mean Corpuscular Hemoglobin 31.7 pg (27.0-31.0); Mean Corpuscular Volume 98.3 fL (78.0-98.0); Mean Platelet Volume 11.4 fL (7.4-10.4); Platelet Count 156 10x3/uL (130-400); RBC Distribution Width 15.6 % (11.5-14.5)
[2023-11-18] MEDS ORDERED: Lorazepam 0.5 MG TAB PO PRN (15:32)
[2023-11-19 05:27] LABS: #Basophils 0.06 10x3/uL (0.0-0.2); %Basophils 0.7 % (0.0-1.0); %Eosinophils 14.6 % (0.0-10.0); %Lymphocytes 18.5 % (21.0-51.0); %Monocytes 13.9 % (0.0-10.0); %Neutrophils 51.5 % (42.0-75.0); Hematocrit 41.2 % (42.0-52.0); Hemoglobin 13.5 g/dL (14.0-18.0); Mean Corpuscular HGB CONC 32.8 g/dL (32.0-36.0); Mean Corpuscular Hemoglobin 32.1 pg (27.0-31.0); Mean Corpuscular Volume 98.1 fL (78.0-98.0); Mean Platelet Volume 11.3 fL (7.4-10.4); Platelet Count 159 10x3/uL (130-400); RBC Distribution Width 15.4 % (11.5-14.5)
[2023-11-19 06:16] LABS: ALT (SGPT) 26 U/L (8-55); AST (SGOT) 43 U/L (5-34); Albumin 2.3 g/dL (3.4-4.8); Alkaline Phosphatase 52 U/L (40-110); Anion Gap 7 mmol/L (10-20); BUN (Urea Nitrogen) 28 mg/dL (8.4-25.7); Bilirubin, Total 0.9 mg/dL (0.2-1.2); Calc. Creatinine Clearance 99 mL/min (70-130); Calcium 7.9 mg/dL (7.8-10.44); Carbon Dioxide 21 mmol/L (23-31); Chloride 113 mmol/L (98-107); Estimated GFR 97; Globulin 2.9 g/dL (2.4-3.5); Glucose 70 mg/dL (80-115); Potassium 4.8 mmol/L (3.5-5.1); Protein, Total 5.2 g/dL (5.8-8.1); Sodium 136 mmol/L (136-145)
[2023-11-19] MEDS: Ipratropium/Albuterol 3 ML NEB NEB PRN (14:34)
[2023-11-19] MEDS ORDERED: HYDROcodone/Acetaminophen 5/325 mg Tablet PO SCH (23:00)
[2023-11-20] MEDS: Morphine 2 MG/ML VIAL SLOW IVP SCH (00:53)
[2023-11-20] MEDS: Morphine 2 MG/ML VIAL SLOW IVP PRN (04:21)
[2023-11-20 06:58] LABS: #Basophils 0.05 10x3/uL (0.0-0.2); %Basophils 0.5 % (0.0-1.0); %Lymphocytes 14.8 % (21.0-51.0); %Monocytes 13.3 % (0.0-10.0); %Neutrophils 65.8 % (42.0-75.0); Hematocrit 41.6 % (42.0-52.0); Hemoglobin 13.6 g/dL (14.0-18.0); Mean Corpuscular HGB CONC 32.7 g/dL (32.0-36.0); Mean Corpuscular Hemoglobin 31.5 pg (27.0-31.0); Mean Corpuscular Volume 96.3 fL (78.0-98.0); Platelet Count 184 10x3/uL (130-400); RBC Distribution Width 15.1 % (11.5-14.5); Red Blood Cell (RBC) Count 4.32 mill/uL (4.70-6.10)
[2023-11-20 07:10] LABS: ALT (SGPT) 36 U/L (8-55); AST (SGOT) 57 U/L (5-34); Albumin 2.6 g/dL (3.4-4.8); Alkaline Phosphatase 64 U/L (40-110); Anion Gap 13 mmol/L (10-20); BUN (Urea Nitrogen) 24 mg/dL (8.4-25.7); Bilirubin, Total 1.1 mg/dL (0.2-1.2); Calc. Creatinine Clearance 104 mL/min (70-130); Calcium 8.3 mg/dL (7.8-10.44); Carbon Dioxide 24 mmol/L (23-31); Chloride 105 mmol/L (98-107); Estimated GFR 96; Globulin 3.4 g/dL (2.4-3.5); Glucose 114 mg/dL (80-115); Potassium 4.8 mmol/L (3.5-5.1); Sodium 137 mmol/L (136-145)
[2023-11-20] MEDS: methylPREDNISolone Sod Succ/PF 125 MG/2 ML VIAL IVP SCH (09:21)
[2023-11-20] MEDS: Haloperidol Lactate 5 MG/ML VIAL IM SCH (22:47)
[2023-11-21] MEDS: Haloperidol Lactate 5 MG/ML VIAL IM SCH (00:24)
[2023-11-21] MEDS: Furosemide 40 MG (4 mL) VIAL SLOW IVP SCH (12:18)
[2023-11-21] MEDS: Morphine 4 MG/ML VIAL SLOW IVP SCH (15:18)
[2023-11-22 05:36] LABS: #Basophils Less than 0.03 10x3/uL (0.0-0.2); %Basophils 0.1 % (0.0-1.0); %Eosinophils 0.3 % (0.0-10.0); %Lymphocytes 10.8 % (21.0-51.0); %Monocytes 8.5 % (0.0-10.0); %Neutrophils 79.5 % (42.0-75.0); Hematocrit 36.6 % (42.0-52.0); Hemoglobin 12.4 g/dL (14.0-18.0); Mean Corpuscular HGB CONC 33.9 g/dL (32.0-36.0); Mean Corpuscular Hemoglobin 31.8 pg (27.0-31.0); Mean Corpuscular Volume 93.8 fL (78.0-98.0); Mean Platelet Volume 10.8 fL (7.4-10.4); Platelet Count 207 10x3/uL (130-400)
[2023-11-22 05:57] LABS: Anion Gap 13 mmol/L (10-20); BUN (Urea Nitrogen) 32 mg/dL (8.4-25.7); Calc. Creatinine Clearance 93 mL/min (70-130); Calcium 8.6 mg/dL (7.8-10.44); Carbon Dioxide 23 mmol/L (23-31); Chloride 105 mmol/L (98-107); Estimated GFR 90; Glucose 102 mg/dL (80-115); Potassium 4.2 mmol/L (3.5-5.1); Sodium 137 mmol/L (136-145)
[2023-11-22] MEDS: Morphine 4 MG/ML VIAL SLOW IVP PRN (08:06)
[2023-11-22] MEDS: Furosemide 40 MG (4 mL) VIAL SLOW IVP SCH (08:08)
[2023-11-22] MEDS: Ketorolac Tromethamine 30 MG (1 mL) VIAL IVP SCH (09:23)
[2023-11-22 13:16] VITALS: BMI 26.2
[2023-11-22] MEDS: HYDROcodone/Acetaminophen 10/325 mg Tablet PO SCH (15:19)
[2023-11-22] MEDS: HYDROcodone/Acetaminophen 10/325 mg Tablet PO PRN (20:19)
[2023-11-23 05:16] LABS: #Basophils 0.05 10x3/uL (0.0-0.2); %Basophils 0.3 % (0.0-1.0); %Eosinophils 5.3 % (0.0-10.0); %Lymphocytes 16.6 % (21.0-51.0); %Monocytes 16.9 % (0.0-10.0); Hematocrit 40.1 % (42.0-52.0); Hemoglobin 13.5 g/dL (14.0-18.0); Mean Corpuscular HGB CONC 33.7 g/dL (32.0-36.0); Mean Corpuscular Hemoglobin 31.8 pg (27.0-31.0); Mean Corpuscular Volume 94.6 fL (78.0-98.0); Mean Platelet Volume 10.8 fL (7.4-10.4); Platelet Count 232 10x3/uL (130-400); Red Blood Cell (RBC) Count 4.24 mill/uL (4.70-6.10)
[2023-11-23 05:43] LABS: Anion Gap 12 mmol/L (10-20); BUN (Urea Nitrogen) 29 mg/dL (8.4-25.7); Calc. Creatinine Clearance 99 mL/min (70-130); Calcium 8.4 mg/dL (7.8-10.44); Carbon Dioxide 24 mmol/L (23-31); Chloride 105 mmol/L (98-107); Estimated GFR 95; Glucose 62 mg/dL (80-115); Potassium 4.6 mmol/L (3.5-5.1); Sodium 136 mmol/L (136-145)
[2023-11-23] MEDS: Lorazepam 2 MG/ML VIAL SLOW IVP SCH (08:51)
[2023-11-23] MEDS: QUEtiapine 25 MG TAB PO SCH (19:59)
[2023-11-24] MEDS: Furosemide 40 MG (4 mL) VIAL SLOW IVP SCH ×3 (06:42→19:56)
[2023-11-24 11:52] LABS: #Basophils 0.07 10x3/uL (0.0-0.2); %Basophils 0.5 % (0.0-1.0); %Eosinophils 7.7 % (0.0-10.0); %Lymphocytes 13.4 % (21.0-51.0); %Monocytes 17.9 % (0.0-10.0); %Neutrophils 59.5 % (42.0-75.0); Hematocrit 42.9 % (42.0-52.0); Hemoglobin 14.3 g/dL (14.0-18.0); Mean Corpuscular HGB CONC 33.3 g/dL (32.0-36.0); Mean Corpuscular Hemoglobin 31.4 pg (27.0-31.0); Mean Corpuscular Volume 94.1 fL (78.0-98.0); Mean Platelet Volume 10.3 fL (7.4-10.4); Platelet Count 293 10x3/uL (130-400); RBC Distribution Width 14.7 % (11.5-14.5); Red Blood Cell (RBC) Count 4.56 mill/uL (4.70-6.10)
[2023-11-24 12:07] LABS: Anion Gap 11 mmol/L (10-20); BUN (Urea Nitrogen) 22 mg/dL (8.4-25.7); Calc. Creatinine Clearance 97 mL/min (70-130); Calcium 9.1 mg/dL (7.8-10.44); Carbon Dioxide 33 mmol/L (23-31); Chloride 104 mmol/L (98-107); Estimated GFR 94; Glucose 96 mg/dL (80-115); Potassium 4.2 mmol/L (3.5-5.1); Sodium 144 mmol/L (136-145)
[2023-11-24] MEDS: cefTRIAXone\\ROCEPHIN 1 GM in Sodium Chloride 0.9% 100 ML IVPB SCH (12:35)
[2023-11-24] MEDS: Azithromycin 250 MG TAB PO SCH (12:35)
[2023-11-25] MEDS ORDERED: Furosemide 40 MG (4 mL) VIAL SLOW IVP SCH (06:00)
[2023-11-25] MEDS: Azithromycin 250 MG TAB PO SCH (08:10)
[2023-11-25 08:54] LABS: #Basophils 0.09 10x3/uL (0.0-0.2); %Basophils 0.7 % (0.0-1.0); %Eosinophils 14.1 % (0.0-10.0); %Lymphocytes 18.5 % (21.0-51.0); %Monocytes 12.9 % (0.0-10.0); %Neutrophils 52.9 % (42.0-75.0); Hematocrit 39.4 % (42.0-52.0); Hemoglobin 13.5 g/dL (14.0-18.0); Mean Corpuscular HGB CONC 34.3 g/dL (32.0-36.0); Mean Corpuscular Hemoglobin 31.8 pg (27.0-31.0); Mean Corpuscular Volume 92.7 fL (78.0-98.0); Mean Platelet Volume 9.9 fL (7.4-10.4); Platelet Count 320 10x3/uL (130-400); RBC Distribution Width 14.5 % (11.5-14.5); Red Blood Cell (RBC) Count 4.25 mill/uL (4.70-6.10)
[2023-11-25 09:19] LABS: Anion Gap 13 mmol/L (10-20); BUN (Urea Nitrogen) 30 mg/dL (8.4-25.7); Calc. Creatinine Clearance 79 mL/min (70-130); Calcium 8.3 mg/dL (7.8-10.44); Carbon Dioxide 30 mmol/L (23-31); Chloride 103 mmol/L (98-107); Estimated GFR 74; Glucose 140 mg/dL (80-115); Potassium 3.6 mmol/L (3.5-5.1); Sodium 142 mmol/L (136-145)
[2023-11-26 05:37] LABS: #Basophils 0.15 10x3/uL (0.0-0.2); %Basophils 1.2 % (0.0-1.0); %Lymphocytes 22.4 % (21.0-51.0); %Monocytes 17.1 % (0.0-10.0); %Neutrophils 40.2 % (42.0-75.0); Hemoglobin 13.2 g/dL (14.0-18.0); Mean Corpuscular HGB CONC 33.8 g/dL (32.0-36.0); Mean Corpuscular Hemoglobin 30.6 pg (27.0-31.0); Mean Corpuscular Volume 90.3 fL (78.0-98.0); Mean Platelet Volume 10.2 fL (7.4-10.4); Platelet Count 360 10x3/uL (130-400); RBC Distribution Width 14.6 % (11.5-14.5); Red Blood Cell (RBC) Count 4.32 mill/uL (4.70-6.10)
[2023-11-26 05:56] LABS: Anion Gap 15 mmol/L (10-20); BUN (Urea Nitrogen) 37 mg/dL (8.4-25.7); Calc. Creatinine Clearance 64 mL/min (70-130); Calcium 8.1 mg/dL (7.8-10.44); Carbon Dioxide 30 mmol/L (23-31); Chloride 102 mmol/L (98-107); Estimated GFR 58; Glucose 90 mg/dL (80-115); Potassium 4.1 mmol/L (3.5-5.1); Sodium 143 mmol/L (136-145)
[2023-11-26] MEDS: Lorazepam 2 MG/ML VIAL SLOW IVP SCH (19:20)
[2023-11-26] MEDS: Lorazepam 2 MG/ML VIAL ONE (19:46)
[2023-11-27 06:07] LABS: #Basophils 0.12 10x3/uL (0.0-0.2); %Basophils 0.9 % (0.0-1.0); %Eosinophils 15.1 % (0.0-10.0); %Lymphocytes 16.9 % (21.0-51.0); %Monocytes 15.7 % (0.0-10.0); %Neutrophils 50.7 % (42.0-75.0); Hemoglobin 13.3 g/dL (14.0-18.0); Mean Corpuscular HGB CONC 34.1 g/dL (32.0-36.0); Mean Corpuscular Hemoglobin 31.8 pg (27.0-31.0); Mean Corpuscular Volume 93.3 fL (78.0-98.0); Mean Platelet Volume 9.6 fL (7.4-10.4); Platelet Count 367 10x3/uL (130-400); RBC Distribution Width 14.5 % (11.5-14.5); Red Blood Cell (RBC) Count 4.18 mill/uL (4.70-6.10)
[2023-11-27 06:23] LABS: Anion Gap 12 mmol/L (10-20); BUN (Urea Nitrogen) 41 mg/dL (8.4-25.7); Calc. Creatinine Clearance 95 mL/min (70-130); Calcium 8.2 mg/dL (7.8-10.44); Carbon Dioxide 27 mmol/L (23-31); Chloride 105 mmol/L (98-107); Estimated GFR 92; Glucose 91 mg/dL (80-115); Potassium 4.2 mmol/L (3.5-5.1); Sodium 140 mmol/L (136-145)
[2023-11-27] MEDS: Furosemide 40 MG TAB PO SCH (10:01)
[2023-11-27 13:11] LABS: Actual Bicarbonate (HCO3a) 20.2 mEq/L (22-28); Base Excess (BEa) -4.6 mEq/L (-2.0 to +3.0); CO2 Tension 36.6 mmHg (35.0-45.0); Carboxyhemoglobin (COHb) 1.2 gm% (0.0-3.0); Hematocrit-ABG 41 % (42.0-52.0); Hemoglobin (Hb) 13.9 g/dL (14.0-18.0); O2 Tension (PaO2), arterial 67.2 mmHg (> 80.0)
[2023-11-27 13:12] LABS: Puncture Site RRA
[2023-11-27 15:48] VITALS: BP 100/63; TEMP 97.7
== END 2023-11-27 15:37 | disposition left against medical advice (07) | DRG 280 ==
LOC: ERS 10:35 → ERHOLD 15:35 → 2NO 18:46 → OBSVTOIN 11-16 13:58 → CCU 11-18 04:10 → T4-A 11-20 10:52
PROVIDERS: ADMIT Internal Medicine; ATTEND Internal Medicine
DX: I48.0 Paroxysmal atrial fibrillation (principal); I50.33 Acute on chronic diastolic (congestive) heart failure; I21.A1 Myocardial infarction type 2; J96.01 Acute respiratory failure with hypoxia; N17.9 Acute kidney failure, unspecified; S22.42XA Multiple fractures of ribs, left side, initial encounter for closed fracture; I69.351 Hemiplegia and hemiparesis following cerebral infarction affecting right dominant side; S42.035A Nondisplaced fracture of lateral end of left clavicle, initial encounter for closed fracture; E78.5 Hyperlipidemia, unspecified; J44.9 Chronic obstructive pulmonary disease, unspecified; F10.20 Alcohol dependence, uncomplicated; F17.210 Nicotine dependence, cigarettes, uncomplicated; W19.XXXA Unspecified fall, initial encounter; E83.42 Hypomagnesemia; I11.0 Hypertensive heart disease with heart failure; Y92.524 Gas station as the place of occurrence of the external cause; I95.9 Hypotension, unspecified; M19.90 Unspecified osteoarthritis, unspecified site; Z79.82 Long term (current) use of aspirin; Z79.01 Long term (current) use of anticoagulants; Z79.899 Other long term (current) drug therapy; G47.00 Insomnia, unspecified; Z88.8 Allergy status to other drugs, medicaments and biological substances; Z91.048 Other nonmedicinal substance allergy status
CPT/HCPCS: 36415; 36416; 36600; 70450; 71045; 71250; 72125; 80048; 80053; 80162; 80307; 82805; 83735; 84100; 84484; 85025; 85610; 85730; 90714; 90715; 93005; 93010; 93306; 94640; 96365; 96374; 96375; 96376; G0378; J0696; J1630; J1885; J1940; J2060; J2270; J2272; J2405; J2930; J3010; J3411; J3475; J3490; J7030; J7120; J7620

== ENCOUNTER 2025-01-23 17:05 | Inpatient (IN) | payer MEDICARE ==
[2025-01-23] MEDS ORDERED: Ondansetron PF 4 MG/2 ML Vial IVP PRN (21:14)
[2025-01-23] MEDS ORDERED: Cyclobenzaprine 10 MG TAB PO PRN (21:18)
[2025-01-23] MEDS ORDERED: Nitroglycerin 0.4 MG TAB (25 Tab Bottle) SL PRN (21:20)
[2025-01-23] MEDS: HYDROcodone/Acetaminophen 5/325 mg Tablet PO SCH (22:12)
[2025-01-23 23:49] VITALS: BMI 21.7
[2025-01-24] MEDS ORDERED: Diltiazem HCl/D5W 125 MG in Premix 1 BAG IVPB SCH ×2 (01:30→11:28)
[2025-01-24 04:28] LABS: #Basophils 0.09 10x3/uL (0.0-0.2); #Eosinophils 0.84 10x3/uL (0.0-0.7); #Monocytes 1.32 10x3/uL (0.11-0.59); #Neutrophils 4.33 10x3/uL (1.40-6.50); %Basophils 1.0 % (0.0-1.0); %Eosinophils 9.1 % (0.0-10.0); %Lymphocytes 28.2 % (21.0-51.0); %Monocytes 14.3 % (0.0-10.0); %Neutrophils 46.8 % (42.0-75.0); Hematocrit 41.1 % (42.0-52.0); Hemoglobin 13.9 g/dL (14.0-18.0); Mean Corpuscular Hemoglobin 30.6 pg (27.0-31.0); Mean Corpuscular Volume 90.5 fL (78.0-98.0); Platelet Count 272 10x3/uL (130-400); Red Blood Cell (RBC) Count 4.54 mill/uL (4.70-6.10); White Blood Cell (WBC) Count 9.25 10x3/uL (4.8-10.8)
[2025-01-24 04:51] LABS: Anion Gap 13 mmol/L (10-20); BUN (Urea Nitrogen) 44 mg/dL (8.4-25.7); Calc. Creatinine Clearance 74 mL/min (70-130); Calcium 8.5 mg/dL (7.8-10.44); Carbon Dioxide 19 mmol/L (23-31); Cardiac Risk 4.8 (Less than 4.5); Chloride 113 mmol/L (98-107); Cholesterol 114 mg/dl (< 200 Desired); Glucose 118 mg/dL (80-115); HDL Cholesterol 24 mg/dL (>60 Neg Risk); LDL Cholesterol, Calculated 73 mg/dL; Potassium 3.7 mmol/L (3.5-5.1); Sodium 141 mmol/L (136-145); Triglycerides 83 mg/dL (Less than 150)
[2025-01-24] MEDS: Aspirin 81 mg Enteric Coated Tablet PO SCH (08:58)
[2025-01-24] MEDS: PNEUMOC 20-VAL CONJ-DIP CRM/PF 0.5 ML SYRINGE IM ONE (08:59)
[2025-01-24] MEDS: Enoxaparin 40 MG (0.4 mL) SYRINGE SC SCH (08:59)
[2025-01-24] MEDS: Famotidine/PF 20 mg/2ml Vial SLOW IVP SCH (08:59)
[2025-01-24] MEDS: Methocarbamol 500 MG TAB PO SCH (12:13)
[2025-01-24] MEDS: Gabapentin 300 MG CAP PO SCH ×2 (12:14→16:26)
[2025-01-24] MEDS ORDERED: Methocarbamol 500 MG TAB PO SCH (21:00)
[2025-01-25] MEDS: HYDROcodone/Acetaminophen 5/325 mg Tablet PO PRN (04:32)
[2025-01-25 05:43] LABS: #Basophils 0.11 10x3/uL (0.0-0.2); #Eosinophils 1.11 10x3/uL (0.0-0.7); #Monocytes 1.50 10x3/uL (0.11-0.59); #Neutrophils 5.11 10x3/uL (1.40-6.50); %Basophils 1.0 % (0.0-1.0); %Eosinophils 10.4 % (0.0-10.0); %Lymphocytes 25.6 % (21.0-51.0); %Monocytes 14.1 % (0.0-10.0); %Neutrophils 48.1 % (42.0-75.0); Hematocrit 40.2 % (42.0-52.0); Hemoglobin 13.2 g/dL (14.0-18.0); Mean Corpuscular Hemoglobin 30.8 pg (27.0-31.0); Mean Corpuscular Volume 93.9 fL (78.0-98.0); Platelet Count 246 10x3/uL (130-400); Red Blood Cell (RBC) Count 4.28 mill/uL (4.70-6.10); White Blood Cell (WBC) Count 10.63 10x3/uL (4.8-10.8)
[2025-01-25 06:21] LABS: Anion Gap 9 mmol/L (10-20); BUN (Urea Nitrogen) 33 mg/dL (8.4-25.7); Calc. Creatinine Clearance 93 mL/min (70-130); Calcium 8.3 mg/dL (7.8-10.44); Carbon Dioxide 21 mmol/L (23-31); Chloride 112 mmol/L (98-107); Glucose 82 mg/dL (80-115); Magnesium 1.6 mg/dL (1.6-2.6); Potassium 4.0 mmol/L (3.5-5.1); Sodium 138 mmol/L (136-145)
[2025-01-25] MEDS: Magnesium Sulfate In Water 4 GM in Premix 1 BAG IVPB SCH (09:08)
[2025-01-26 04:53] LABS: #Basophils 0.12 10x3/uL (0.0-0.2); #Eosinophils 1.37 10x3/uL (0.0-0.7); #Monocytes 1.19 10x3/uL (0.11-0.59); #Neutrophils 5.90 10x3/uL (1.40-6.50); %Basophils 1.1 % (0.0-1.0); %Eosinophils 12.0 % (0.0-10.0); %Lymphocytes 23.8 % (21.0-51.0); %Monocytes 10.5 % (0.0-10.0); %Neutrophils 51.9 % (42.0-75.0); Hematocrit 39.4 % (42.0-52.0); Hemoglobin 13.5 g/dL (14.0-18.0); Mean Corpuscular Hemoglobin 31.5 pg (27.0-31.0); Mean Corpuscular Volume 91.8 fL (78.0-98.0); Platelet Count 260 10x3/uL (130-400); Red Blood Cell (RBC) Count 4.29 mill/uL (4.70-6.10); White Blood Cell (WBC) Count 11.37 10x3/uL (4.8-10.8)
[2025-01-26 05:40] LABS: Anion Gap 12 mmol/L (10-20); BUN (Urea Nitrogen) 24 mg/dL (8.4-25.7); Calc. Creatinine Clearance 104 mL/min (70-130); Calcium 8.2 mg/dL (7.8-10.44); Carbon Dioxide 21 mmol/L (23-31); Chloride 109 mmol/L (98-107); Glucose 72 mg/dL (80-115); Magnesium 1.9 mg/dL (1.6-2.6); Potassium 4.2 mmol/L (3.5-5.1); Sodium 138 mmol/L (136-145)
[2025-01-27 10:10] LABS: Hematocrit 41.9 % (42.0-52.0); Hemoglobin 14.3 g/dL (14.0-18.0); Mean Corpuscular Hemoglobin 31.4 pg (27.0-31.0); Mean Corpuscular Volume 92.1 fL (78.0-98.0); Platelet Count 258 10x3/uL (130-400); Red Blood Cell (RBC) Count 4.55 mill/uL (4.70-6.10); White Blood Cell (WBC) Count 10.04 10x3/uL (4.8-10.8)
[2025-01-27 10:18] LABS: Anion Gap 9 mmol/L (10-20); BUN (Urea Nitrogen) 19 mg/dL (8.4-25.7); Calc. Creatinine Clearance 112 mL/min (70-130); Calcium 8.6 mg/dL (7.8-10.44); Carbon Dioxide 24 mmol/L (23-31); Chloride 109 mmol/L (98-107); Glucose 77 mg/dL (80-115); Potassium 4.1 mmol/L (3.5-5.1); Sodium 138 mmol/L (136-145)
[2025-01-27 10:40] LABS: Burr Cells SLIGHT = 2-5 cells HPF (0-1); Platelet Adequacy Comment Platelets Normal; Polychromasia SLIGHT = 2-3 cells HPF (0-2); Smudge Cells 16.3 %; Spherocytes SLIGHT = 1-5 cells HPF (None Seen); Target Cells SLIGHT = 2-5 cells HPF (0-1)
[2025-01-28 10:27] LABS: Anion Gap 12 mmol/L (10-20); BUN (Urea Nitrogen) 19 mg/dL (8.4-25.7); Calc. Creatinine Clearance 91 mL/min (70-130); Calcium 9.0 mg/dL (7.8-10.44); Carbon Dioxide 26 mmol/L (23-31); Glucose 112 mg/dL (80-115); Potassium 4.0 mmol/L (3.5-5.1); Sodium 139 mmol/L (136-145)
[2025-01-28 10:32] LABS: Chloride 105 mmol/L (98-107)
[2025-01-28 11:02] LABS: #Basophils 0.10 10x3/uL (0.0-0.2); #Eosinophils 1.59 10x3/uL (0.0-0.7); #Monocytes 1.79 10x3/uL (0.11-0.59); #Neutrophils 4.67 10x3/uL (1.40-6.50); %Basophils 0.9 % (0.0-1.0); %Eosinophils 14.5 % (0.0-10.0); %Lymphocytes 24.9 % (21.0-51.0); %Monocytes 16.4 % (0.0-10.0); %Neutrophils 42.7 % (42.0-75.0); Hematocrit 43.7 % (42.0-52.0); Hemoglobin 14.5 g/dL (14.0-18.0); Mean Corpuscular Hemoglobin 31.7 pg (27.0-31.0); Mean Corpuscular Volume 95.4 fL (78.0-98.0); Platelet Count 274 10x3/uL (130-400); Red Blood Cell (RBC) Count 4.58 mill/uL (4.70-6.10); White Blood Cell (WBC) Count 10.94 10x3/uL (4.8-10.8)
[2025-01-28 15:58] VITALS: BP 126/80; TEMP 97.6
== END 2025-01-28 16:16 | DRG 563 ==
LOC: 2NO 18:03 → INTOOBSV 18:03 → OBSVTOIN 01-24 11:05 → MSONC 01-26 17:30
PROVIDERS: ADMIT Family Medicine; ATTEND Internal Medicine
PROC: 3E0234Z Introduction of Serum, Toxoid and Vaccine into Muscle, Percutaneous Approach (ICD-10-PCS; principal; 2025-01-24)
DX: S82.391A Other fracture of lower end of right tibia, initial encounter for closed fracture (principal); I48.19 Other persistent atrial fibrillation; E87.20 Acidosis, unspecified; I69.351 Hemiplegia and hemiparesis following cerebral infarction affecting right dominant side; N17.9 Acute kidney failure, unspecified; M25.561 Pain in right knee; I10 Essential (primary) hypertension; N40.0 Benign prostatic hyperplasia without lower urinary tract symptoms; F17.210 Nicotine dependence, cigarettes, uncomplicated; I95.9 Hypotension, unspecified; M62.838 Other muscle spasm; J44.89 Other specified chronic obstructive pulmonary disease; F10.10 Alcohol abuse, uncomplicated; Z23 Encounter for immunization; G89.11 Acute pain due to trauma; R00.1 Bradycardia, unspecified; I08.0 Rheumatic disorders of both mitral and aortic valves; Z79.899 Other long term (current) drug therapy; Z91.148 Patient's other noncompliance with medication regimen for other reason; G89.29 Other chronic pain; M54.9 Dorsalgia, unspecified; Z88.8 Allergy status to other drugs, medicaments and biological substances; Z91.038 Other insect allergy status; Z91.048 Other nonmedicinal substance allergy status; G89.21 Chronic pain due to trauma; J44.9 Chronic obstructive pulmonary disease, unspecified; Z99.81 Dependence on supplemental oxygen; Z71.6 Tobacco abuse counseling; V89.2XXA Person injured in unspecified motor-vehicle accident, traffic, initial encounter
CPT/HCPCS: 36415; 80048; 80061; 83735; 84443; 85025; 96372; G0378; J1308; J1650; J2272; J3475; J7030